=== PATIENT | female | born 1965 | race Caucasian/White ===

== ENCOUNTER 2016-10-28 14:44 | Emergency (ER) | payer BC ==
[2016-10-28 15:06] VITALS: BP 121/73
--- NOTE | 2016-10-28 15:49 | UC ---
Back Pain HPI - HPI Summary HPI Summary: Sudden onset mid back pain on bilat flanks, L>R earlier today while walking up stairs. Denies any notable injury or trauma, and felt well enough to run this morning. Denies urinary symptoms, though thinks she could have had hematuria some weeks ago. Had similar pain last month that resolved in about a day. No fever, no hx of DVT, not taking estrogen, no recent trips or surgeries, no past kidney stones, not SOB. Pain in back worsens with deep breaths because it feels like it is "pushing on" painful area. - History of Current Complaint Chief Complaint: UCBackPain Stated Complaint: BACK PAIN Time Seen by Provider: 10/28/16 15:21 Hx Obtained From: Patient ?: No Onset/Duration: Sudden Onset Timing: Constant Severity Initially: Moderate Severity Currently: Moderate Pain Intensity: 10 Back Pain: Is Discrete @ Character: Aching, Spasmodic, Stiffness Aggravating: Movement, Walking, Cough Alleviating: Rest, Position Associated Signs And Symptoms: Positive: Flank Pain. Negative: Fever, Weakness , Numbness, Bladder Incontinence, Bowel Incontinence - Allergies/Home Medications Allergies/Adverse Reactions: Allergies Allergy/AdvReac Type Severity Reaction Status Date / Time Hydroxychloroquine Allergy Intermediate Hives Verified 10/28/16 15:42 Home Medications: Home Medications DOXYcycline CAP(*) [DOXYcycline 100MG CAP(*)] 100 mg PO BID 10/28/16 [History Confirmed 10/28/16] Venlafaxine TAB (NF) [Effexor TAB (NF)] 25 mg PO DAILY 10/28/16 [History Confirmed 10/28/16] ceFUROXime TAB(*) [Ceftin TAB 250 MG(*)] 250 mg PO BID 10/28/16 [History Confirmed 10/28/16] lamoTRIgine TAB(*) [Lamictal TAB(*)] 50 mg PO DAILY 10/28/16 [History Confirmed 10/28/16] PMH/Surg Hx/FS Hx/Imm Hx Endocrine History Of: Denies: Diabetes Cardiovascular History Of: Denies: Hypertension, Pacemaker/ICD GI/ History Of: Denies: Renal Disease Cancer History Of: Denies: Breast Cancer - Surgical History Surgical History: Yes Surgery Procedure, Year, and Place: PARTIAL HYSTERECTOMY 03/15. LEFT LASER EYE SURGERY FOR RETINAL TEAR 03/16 - Family History Known Family History: Positive: Cardiac Disease, Other - dad CVA, [place] - Social History Lives: Alone Alcohol Use: Weekly Substance Use Type: Marijuana Substance Use Comment - Amount & Last Used: daily Smoking Status (MU): Former Smoker Type: Cigarettes Length of Time of Smoking/Using Tobacco: 20 years Have You Smoked in the Last Year: No When Did the Patient Quit Smoking/Using Tobacco: 2006 Review of Systems Constitutional: Negative Skin: Negative Eyes: Negative ENT: Negative Respiratory: Negative Cardiovascular: Negative Gastrointestinal: Negative Genitourinary: Negative Motor: Negative Neurovascular: Negative Musculoskeletal: Arthralgia, Myalgia Neurological: Negative Psychological: Negative All Other Systems Reviewed And Are Negative: Yes Physical Exam Triage Information Reviewed: Yes Appearance: Well-Appearing, Pain Distress - mild, with movement Vital Signs: Initial Vital Signs Temp 98.7 F 10/28/16 15:02 Pulse 74 10/28/16 15:02 Resp 16 10/28/16 15:02 BP 121/73 10/28/16 15:02 Pulse Ox 99 10/28/16 15:02 Vital Signs Reviewed: Yes Eye Exam: Normal Eyes: Positive: Conjunctiva Clear ENT Exam: Normal ENT: Positive: Normal ENT inspection, Hearing grossly normal, Pharynx normal, TMs normal Dental Exam: Normal Neck exam: Normal Neck: Positive: Supple, Nontender, No Lymphadenopathy Respiratory Exam: Normal Respiratory: Positive: Chest non-tender, Lungs clear, Normal breath sounds, No respiratory distress, No accessory muscle use Cardiovascular Exam: Normal Cardiovascular: Positive: RRR, No Murmur Abdomen Description: Positive: Soft. Negative: CVA Tenderness (R), CVA Tenderness (L), Guarding, Peritoneal Signs Musculoskeletal: Positive: Strength Intact, ROM Limited @ - back Neurological: Positive: Alert, Muscle Tone Normal Psychological Exam: Normal Skin Exam: Normal Back Pain Course/Dx - Differential Dx/Diagnosis Provider Diagnoses: upper back strain. muscle spasm Discharge - Discharge Plan Condition: Stable Disposition: HOME Prescriptions: Cyclobenzaprine TAB* [Flexeril TAB*] 10 mg PO TID PRN #20 tab PRN Reason: Pain Indomethacin CAP* [Indocin CAP*] 50 mg PO BID #15 cap Patient Education Materials: Muscle Spasm (ED), Thoracic Back Strain (ED) Referrals: Darryl Jamison MD [Primary Care Provider] - If Needed Additional Instructions: You can start moist heat tomorrow. After you are done with the indomethacin you can resume your meloxicam.
== END 2016-10-28 15:55 | disposition home or self-care (01) ==
LOC: UCEAST 14:44
DX: S29.012A Strain of muscle and tendon of back wall of thorax, initial encounter (principal); X58.XXXA Exposure to other specified factors, initial encounter; Y93.9 Activity, unspecified; Y92.9 Unspecified place or not applicable; M62.830 Muscle spasm of back; Z88.8 Allergy status to other drugs, medicaments and biological substances; F12.90 Cannabis use, unspecified, uncomplicated; Z87.891 Personal history of nicotine dependence
CPT/HCPCS: 81002; 87077; 87086; 87186; 99212; G0463